=== PATIENT | male | born 1980 | race Caucasian/White ===

== ENCOUNTER 2016-12-05 15:25 | Emergency (ER) | payer BC, OTHER ==
[2016-12-05 16:45] VITALS: BP 114/63
--- NOTE | 2016-12-05 17:01 | UC ---
Knee Pain HPI - HPI Summary HPI Summary: 35 year old male presents complaining of left sided knee pain located lateral to the knee cap after slipping and twisting the knee while in the parking lot at work around 1245 hours today. Patient felt and heard a pop in the knee. States that his pain increases when weight bearing and flexing and extending the knee. Denies locking, sliding or instability in the knee. - History of Current Complaint Chief Complaint: UCLowerExtremity Stated Complaint: LEFT KNEE INJURY (WC) Time Seen by Provider: 12/05/16 16:50 Hx Obtained From: Patient Onset/Duration: Sudden Onset Severity Initially: Moderate Severity Currently: Moderate Character: Stiffness Aggravating Factor(s): Movement, Weight Bearing, Prolonged Standing Alleviating Factor(s): Rest, Cold Able to Bear Weight: Yes - Risk Factors Septic Arthritis Risk Factor: Negative Gout Risk Factor: Negative - Allergies/Home Medications Allergies/Adverse Reactions: Allergies Allergy/AdvReac Type Severity Reaction Status Date / Time Cephalexin [From Keflex] Allergy Rash Verified 12/05/16 16:45 PMH/Surg Hx/FS Hx/Imm Hx Previously Healthy: Yes Endocrine History Of: Denies: Diabetes, Thyroid Disease Cardiovascular History Of: Denies: Cardiac Disorders, Hypertension Respiratory History Of: Denies: Asthma GI/ History Of: Denies: Ulcer Psychological History Of: Denies: Anxiety, Depression - Surgical History Surgical History: Yes Surgery Procedure, Year, and Place: tonsilectomy - Family History Known Family History: Positive: Unknown - Social History Occupation: Employed Full-time - [employer] Alcohol Use: Daily Alcohol Amount: 1 daily Substance Use Type: None Smoking Status (MU): Current Every Day Smoker Type: eCigarettes Amount Used/How Often: daily usage of ecigg - Immunization History Most Recent Influenza Vaccination: none Review of Systems Constitutional: Negative Skin: Negative Eyes: Negative ENT: Negative Respiratory: Negative Cardiovascular: Negative Gastrointestinal: Negative Genitourinary: Negative Motor: Other - Full ROM in the left knee, no noticeable weakness, patient states ROM increases the pain located on the sides of the patella. Neurovascular: Negative Musculoskeletal: Other: - Left knee pain Neurological: Negative Psychological: Negative All Other Systems Reviewed And Are Negative: Yes Physical Exam Triage Information Reviewed: Yes Appearance: Well-Appearing, No Pain Distress, Well-Nourished Vital Signs: Initial Vital Signs Temp 98.3 F 02/14/17 16:41 Pulse 82 12/05/16 16:41 Resp 17 12/05/16 16:41 BP 114/63 12/05/16 16:41 Pulse Ox 100 12/05/16 16:41 Vital Signs Reviewed: Yes Eye Exam: Normal Eyes: Positive: Conjunctiva Clear ENT: Positive: Normal ENT inspection, Hearing grossly normal, Pharynx normal, TMs normal Dental Exam: Normal Neck: Positive: Supple, Nontender, No Lymphadenopathy Respiratory: Positive: Chest non-tender, Lungs clear, Normal breath sounds, No respiratory distress Cardiovascular: Positive: RRR, No Murmur, Pulses Normal Abdomen Description: Positive: Nontender, No Organomegaly, Soft Bowel Sounds: Positive: Present Musculoskeletal Exam: Normal Musculoskeletal: Positive: Strength Intact - No weakened strength noted in the knee, ROM Intact, No Edema - No noticeable or palpable edema observed when compared with the right knee Neurological: Positive: Alert, Muscle Tone Normal Psychological Exam: Normal Knee Pain Course/Dx - Differential Dx/Diagnosis Provider Diagnoses: Suspect injury to patellar retinaculum in L knee. Possible left knee ligament injury Discharge - Discharge Plan Condition: Stable Disposition: HOME Prescriptions: Naproxen [Naproxen 500 MG TABS] 500 mg PO BID #10 tab Patient Education Materials: Knee Sprain (ED) Forms: *Work Release Referrals: Hugh Smalls MD [Medical Doctor] - Additional Instructions: Follow up with orthopedist within the next week or so. If it is difficult to travel to [place] for the follow-up, you can arrange for an appointment with an orthopedist in [place] at [phone].
--- NOTE | 2016-12-05 18:05 | RAD ---
INDICATION: Left knee injury COMPARISON: None TECHNIQUE: AP, lateral, tunnel, and sunrise were obtained. FINDINGS: The bony structures, joint spaces, and soft tissues are normal for age. IMPRESSION: NEGATIVE EXAMINATION.
== END 2016-12-05 18:23 | disposition home or self-care (01) ==
LOC: UCCORT 15:25
DX: S83.92XA Sprain of unspecified site of left knee, initial encounter (principal); F17.210 Nicotine dependence, cigarettes, uncomplicated; W01.0XXA Fall on same level from slipping, tripping and stumbling without subsequent striking against object, initial encounter; Y92.9 Unspecified place or not applicable; Y99.0 Civilian activity done for income or pay; Z88.1 Allergy status to other antibiotic agents
CPT/HCPCS: 99213; G0463

== ENCOUNTER 2019-01-01 08:22 | Emergency (ER) | payer BC, OTHER ==
[2019-01-01 09:21] VITALS: BP 112/67
[2019-01-01 10:07] LABS: Influenza A Molecular NEGATIVE (Negative); Influenza B Molecular NEGATIVE (Negative)
--- NOTE | 2019-01-01 10:18 | UC ---
Throat Pain/Nasal [place] HPI - HPI Summary HPI Summary: 38-year-old male comes in with a chief complaint of 3 days of upper respiratory tract infection symptoms. Discussed rhinorrhea sinus pressure cough. Minimal sore throat. No wheezing. [id number] medicines to help with the symptoms. - History of Current Complaint Chief Complaint: UCRespiratory Stated Complaint: ST,RAHMAN,BODY ACHES,PAINFUL EARS Time Seen by Provider: 01/01/19 09:58 Pain Intensity: 4 - Allergies/Home Medications Allergies/Adverse Reactions: Allergies Allergy/AdvReac Type Severity Reaction Status Date / Time cephalexin [From Keflex] Allergy Unknown Rash Verified 01/01/19 09:14 Home Medications: Home Medications Ibuprofen TAB* [Advil TAB*] 600 mg PO Q6H PRN 01/01/19 [History Confirmed ] Naproxen [Naproxen 500 MG TABS] 500 mg PO BID PRN 01/01/19 [History] PMH/Surg Hx/FS Hx/Imm Hx Previously Healthy: Yes - Surgical History Surgical History: Yes Surgery Procedure, Year, and Place: tonsilectomy - Family History Known Family History: Positive: Unknown - Social History Alcohol Use: Daily Alcohol Amount: 1 daily Substance Use Type: None Smoking Status (MU): Current Every Day Smoker Type: eCigarettes Amount Used/How Often: daily usage of ecigg - Immunization History Most Recent Influenza Vaccination: none Review of Systems All Other Systems Reviewed And Are Negative: Yes Constitutional: Positive: Chills Skin: Positive: Negative Eyes: Positive: Negative ENT: Positive: Sore Throat, Nasal Discharge, Sinus Congestion Respiratory: Positive: Cough Cardiovascular: Positive: Negative Gastrointestinal: Positive: Negative Motor: Positive: Negative Neurovascular: Positive: Negative Musculoskeletal: Positive: Negative Neurological: Positive: Negative Psychological: Positive: Negative Is Patient Immunocompromised?: No Physical Exam Triage Information Reviewed: Yes Appearance: No Pain Distress, Well-Nourished, Ill-Appearing - MILD Vital Signs: Initial Vital Signs Temp 97.8 F 01/01/19 09:16 Pulse 75 01/01/19 09:16 Resp 20 01/01/19 09:16 BP 112/67 01/01/19 09:16 Pulse Ox 100 01/01/19 09:16 Vital Signs Reviewed: Yes Eye Exam: Normal Eyes: Positive: Conjunctiva Clear ENT: Positive: Pharyngeal erythema, Nasal congestion, Nasal drainage, TMs normal Neck exam: Normal Neck: Positive: Supple Respiratory: Positive: Lungs clear, Normal breath sounds, No respiratory distress Cardiovascular: Positive: RRR Musculoskeletal Exam: Normal Musculoskeletal: Positive: Strength Intact, ROM Intact Neurological Exam: Normal Neurological: Positive: Alert, Muscle Tone Normal Psychological Exam: Normal Psychological: Positive: Age Appropriate Behavior Skin Exam: Normal Throat Pain/Nasal Course/Dx - Course Course Of Treatment: DISCUSSED VIRAL VERSES BACTERIAL INFECTION AND THE ROLE OF ANTIBIOTICS. THE PATIENT WISHES TO BE ON ANTIBIOTICS AT THIS TIME. - Differential Dx/Diagnosis Provider Diagnosis: Upper respiratory infection Discharge - Sign-Out/Discharge Documenting (check all that apply): Patient Departure All imaging exams completed and their final reports reviewed: No Studies - Discharge Plan Condition: Stable Disposition: HOME Prescriptions: Azithromyxin PHONG (NF) [Z-Phong (Zithromax) 250 mg tabs #6] 2 tab PO .TODAY, THEN 1 DAILY #6 tab Patient Education Materials: Upper Respiratory Infection (ED) Forms: *Work Release Referrals: Syed Jin MD [Primary Care Provider] - Additional Instructions: FOLLOW UP WITH YOUR DOCTOR IF NOT COMPLETELY IMPROVED. GET RECHECKED FOR ANY WORSENING OF YOUR CONDITION OR QUESTIONS OR CONCERNS. - Billing Disposition and Condition Condition: STABLE Disposition: Home
== END 2019-01-01 10:22 | disposition home or self-care (01) ==
LOC: UCCORT 08:22
DX: J06.9 Acute upper respiratory infection, unspecified (principal); F17.290 Nicotine dependence, other tobacco product, uncomplicated; Z88.1 Allergy status to other antibiotic agents
CPT/HCPCS: 87651; 99212; G0463